=== PATIENT | female | born 1990 | race Caucasian/White ===

== ENCOUNTER → 2019-07-28 | Outpatient (CLI) | payer BC ==
[2019-07-28 11:20] LABS: HEMATOCRIT 40 % (35-52); HEMOGLOBIN 13.4 G/DL (11.5-16.0); MEAN CORPUSCULAR HEMOGLOBIN 28 PG (25-34); MEAN CORPUSCULAR HGB CONC 33 G/DL (32-36); MEAN CORPUSCULAR VOLUME 85 FL (80-99); WHITE BLOOD COUNT 12.7 10^3/uL (4.3-11.0)
[2019-07-28 11:21] LABS: BASOPHILS % (AUTO) 0 % (0-10); EOSINOPHILS % (AUTO) 1 % (0-10); LYMPHOCYTES # (AUTO) 2.3 X 10^3 (1.0-4.0); LYMPHOCYTES % (AUTO) 18 % (12-44); MONOCYTES # (AUTO) 0.6 X 10^3 (0.0-1.0); MONOCYTES % (AUTO) 5 % (0-12); NEUTROPHILS # (AUTO) 9.6 X 10^3 (1.8-7.8); NEUTROPHILS % (AUTO) 76 % (42-75); PLATELET COUNT 303 10^3/uL (130-400); RED CELL DISTRIBUTION WIDTH 12.7 % (10.0-14.5)
[2019-07-28 11:22] LABS: EOSINOPHILS # (AUTO) 0.1 10^3/uL (0.0-0.3)
== END ==
LOC: LAB FS 09:28
PROVIDERS: ATTEND Family Medicine
DX: Z34.80 Encounter for supervision of other normal pregnancy, unspecified trimester (principal); Z3A.00 Weeks of gestation of pregnancy not specified
CPT/HCPCS: 36415; 85025; 86703; 86762; 86780; 86850; 86900; 86901; 87088; 87340

== ENCOUNTER → 2019-08-29 | Outpatient (CLI) | payer OTHER | LOC: RAD FS 09:51 | PROVIDERS: ATTEND Family Medicine | DX: Z34.80 Encounter for supervision of other normal pregnancy, unspecified trimester (principal); Z3A.00 Weeks of gestation of pregnancy not specified | CPT/HCPCS: 36415; 82105; 82677; 84702; 86336 ==

== ENCOUNTER → 2019-08-29 | Outpatient (CLI) | payer OTHER | LOC: LAB FS 16:41 | PROVIDERS: ATTEND Family Medicine | DX: Z34.80 Encounter for supervision of other normal pregnancy, unspecified trimester (principal) | CPT/HCPCS: 36415; 87491; 87591 ==

== ENCOUNTER 2020-02-03 06:15 | Inpatient (IN) | payer OTHER ==
[2020-02-03] VITALS (58 sets, daily range): BP systolic 93–144; BP diastolic 53–82
[~2020-02-03] VITALS: Ht 157.5 cm; Wt 84.0 kg
--- NOTE | 2020-02-03 06:15 | NUR ---
DEE HOWELL presented to unit via ambulation from home/ED, accompanied by & Kristofer Bess, astro technician, for . DEE HOWELL weighed, gowned, voided, and to bed. EFHM and TOCO applied, VS taken. DEE HOWELL oriented to bed controls, call light, TV, heat, and A/C controls.
--- OUTSIDE RECORDS SUMMARY | 2020-02-03 06:19 | XMS REPORT | Continuity of Care Document ---
Author Organization Unknown Address Unknown Phone Unavailable Allergies There is no data. Medications There is no data. Problems Date Dx Coded Attending Type Code Diagnosis Diagnosed By 07/31/2019 Ot Z34.80 ENC OUNTER FOR SUPRVSN OF NORMAL PREGNANC 07/31/2019 Ot Z3A.00 WEE KS OF GESTATION OF NOT SPEC 08/29/2019 Ot Z34.80 ENC OUNTER FOR SUPRVSN OF NORMAL PREGNANC 08/29/2019 Ot Z3A.00 WEE KS OF GESTATION OF NOT SPEC 09/01/2019 FELIX VILLALOBOS MD Ot Z34.80 ENCOUNTER FOR SUPRVSN OF NORMAL PREGNANC 09/02/2019 FELIX VILLALOBOS MD Ot Z34.80 ENCOUNTER FOR SUPRVSN OF NORMAL PREGNANC 09/02/2019 FELIX VILLALOBOS MD Ot Z3A.00 WEEKS OF GESTATION OF NOT SPEC 09/09/2019 Ot Z34.80 ENC OUNTER FOR SUPRVSN OF NORMAL PREGNANC 09/09/2019 Ot Z3A.00 WEGm KS OF GESTATION OF NOT SPEC 09/13/2019 FELIX VILLALOBOS MD Ot Z34.80 ENCOUNTER FOR SUPRVSN OF NORMAL PREGNANC Procedures There is no data. Results Test Result Range HCG, QUANTITATIVE - 06/17/19 17:19 [place], [place] [address] mIU/mL NRG HCG, QUANTITATIVE - 06/19/19 16:46 [place] [address] mIU/mL NRG Complete blood count (CBC) with automate d white blood cell (WBC) differential - 07/28/19 10:04 Blood leukocytes automated count (number/volume) 12.7 10*3/uL 4.3-11.0 Blood erythrocytes automated count (number/volume) 4.74 10*6/uL 4.35-5.85 Venous blood hemoglobin measurement (mass/volume) 13.4 g/dL 11.5-16.0 Blood hematocrit (volume fraction) 40 % 35-52 Automated erythrocyte mean corpuscular volume 85 [ foz_us] 80-99 Automated erythrocyte mean corpuscular h emoglobin (mass per erythrocyte) 28 pg 25-34 Automated erythrocyte mean corpuscular h emoglobin concentration measurement (mass/volume) 33 g/dL 32-36 Automated erythrocyte distribution width ratio 12. 7 % 10.0- 14.5 Automated blood platelet count (count/volume) 303 10*3/uL 130-400 Automated blood platelet mean volume measurement 9.0 [foz_us] 7.4-10.4 Automated blood neutrophils/100 leukocytes 76 % 42-75 Automated blood lymphocytes/100 leukocytes 18 % 12-44 Blood monocytes/100 leukocytes 5 % 0-12 Automated blood eosinophils/100 leukocytes 1 % 0-10 Automated blood basophils/100 leukocytes 0 % 0-10 Blood neutrophils automated count (number/volume) 9.6 10*3 1.8-7.8 Blood lymphocytes automated count (number/volume) 2.3 10*3 1.0-4.0 Blood monocytes automated count (number/volume) 0. 6 10*3 0.0-1.0 Automated eosinophil count 0.1 10*3/uL 0 .0-0.3 Automated blood basophil count (count/volume) 0.0 10*3/uL 0.0-0.1 Blood type T Indirect antibody screen [place] - 07/28/19 10:04 ABO+Rh group OP NRG Blood group antibody screen NEGATIVE NR G Body fluid hepatitis B virus surface ant igen detection - 07/28/19 10:04 Confirmatory quantitative serum or plasm a hepatitis B virus surface antigen measurement Non-Reactive Non-Reactive Serum reagin antibody assay (units/volum e) by RPR - 07/28/19 10:04 Serum reagin antibody assay (units/volume) by RPR Non-Reactive Non-Reactive Human immunodeficiency virus (HIV) type 1 and 2 antibody detection - 07/28/19 10:04 Serum HIV 1+2 antibody detection by immunoblot Non-Reactive Non-Reactive RUBELLA ANTIBODY IGG - 07/28/19 10:04 Interpretation of serum rubella virus IgG antibody ck t Positive Negative RUBELLA IGG AB 2.08 % 0.00-0.89 Bacterial urine culture - 07/28/19 11:40 Bacterial urine culture [id number] NRG COLONY COUNT 10,000/ML - 100,000/ML NRG FTX;REPORTABLE YEAST REPORTED BY P 07/30 10:51 NRG FREE TEXT ENTRY 2 RML FINAL REPORT OF 07/29 WAS NO GROWTH NRG Encounters ACCT No. Visit Date/Time Discharge Status Pt. Type Provider Facility Loc./Unit Complaint [id number] 06/17/2019 16:45:00 06/17/2019 23:59: 59 CLS Outpatient FELIX VILLALOBOS [facility] [id number] 06/19/2019 16:45:00 Document Registration [id number] 06/17/2019 16:45:00 Document Registration [id number] 08/29/2019 16:41:00 020 23:59:59 CLS Outpatient FELIX VILLALOBOS MD [facility] LAB FS Z34.80 [id number] 08/29/2019 09:51:00 020 23:59:59 CLS Outpatient FELIX VILLALOBOS MD [facility] RAD FS Z34.80 [id number] 02/03/2020 06:30:00 P EN Preadmit TANYA RYAN DO [id number] 07/28/2019 11:22:00 Document Registration
[2020-02-03] MEDS ORDERED: D5 LR IV SOLUTION 1,000 ML IV SCH (06:31)
[2020-02-03] MEDS ORDERED: OXYTOCIN PRE-MIX DRIP 500 ML IV SCH ×3 (06:31→13:15)
[2020-02-03] MEDS ORDERED: D5 LR IV SOLUTION 1,000 ML IV ONE (06:47)
[2020-02-03] MEDS ORDERED: LACTATED RINGERS 1,000 ML IV ONE ×3 (06:49→08:40)
[2020-02-03 06:52] LABS: BASOPHILS % (AUTO) 0 % (0-10); EOSINOPHILS # (AUTO) 0.1 10^3/uL (0.0-0.3); EOSINOPHILS % (AUTO) 1 % (0-10); HEMATOCRIT 38 % (35-52); HEMOGLOBIN 12.9 G/DL (11.5-16.0); LYMPHOCYTES # (AUTO) 2.6 X 10^3 (1.0-4.0); LYMPHOCYTES % (AUTO) 18 % (12-44); MEAN CORPUSCULAR HEMOGLOBIN 28 PG (25-34); MEAN CORPUSCULAR HGB CONC 34 G/DL (32-36); MEAN CORPUSCULAR VOLUME 83 FL (80-99); MEAN PLATELET VOLUME 10.4 FL (7.4-10.4); MONOCYTES % (AUTO) 7 % (0-12); NEUTROPHILS % (AUTO) 75 % (42-75); PLATELET COUNT 326 10^3/uL (130-400); RED CELL DISTRIBUTION WIDTH 13.2 % (10.0-14.5); WHITE BLOOD COUNT 14.8 10^3/uL (4.3-11.0)
[2020-02-03] MEDS ORDERED: fentaNYL 2 mcg/ml BUPIVA 0.125 100 ML ONE (07:22)
--- NOTE | 2020-02-03 07:22 | NUR ---
Anesthesia notified of need for labor epidural
[2020-02-03 07:40] LABS: NEUTROPHILS % (MANUAL) 79 %
[2020-02-03 07:41] LABS: BAND NEUTROPHILS 0 %; BASOPHILS % (MANUAL) 0 %; EOSINOPHILS % (MANUAL) 2 %; LYMPHOCYTES % (MANUAL) 16 %; MONOCYTES % (MANUAL) 3 %; RBC MORPH NORMAL
[2020-02-03] MEDS ORDERED: fentaNYL INJECTION 100 MCG/2 ML AMP ONE (07:54)
[2020-02-03] MEDS ORDERED: ONDANSETRON 4 MG/2 ML (SDV) Z0FRAN IV PRN (08:45)
[2020-02-03] MEDS ORDERED: NALOXONE 0.4 MG/ML 1 ML (NARCAN) VIAL IV PRN (08:45)
[2020-02-03] MEDS ORDERED: EPIDURAL (fentaNYL 2 MCG/ML BUPIVA 0.125%)100 ML BAG EPI PRN (08:45)
[2020-02-03] MEDS ORDERED: BUPIVACAINE 0.25% 30 ML (SENSORCAINE) VIAL ONE (08:47)
--- NOTE | 2020-02-03 11:50 | History & Physical-OB ---
OB - Chief Complaint & HPI Date/Time Date of Admission: Date of Admission: Feb 03, 2020 at 6:15 am Date seen by a Provider: Feb 03, 2020 Time Seen by a Provider: 08:10 Chief Complaint/History OB-Reason for Admission/Chief: Induction of Labor Hx : 3 Hx Para: 2 Expected Date of Delivery: Feb 06, 2020 Gestational Age in Weeks: 39 Gestational Age in Days: 4 Admission Nurse Assessment Rev: Yes Allergies and Home Medications Allergies Coded Allergies: oxycodone (Verified Allergy, Intermediate, Rash, 02/03/20) Patient Home Medication List Home Medication List Reviewed: Yes OB - History Hx of Present Care: Yes Ultrasounds: Normal mid trimester US Obstetrical Complications: None Medical Complications: None Patient Past Medical History n/a OB - Admission Exam Physical Exam Vitals: Vital Signs 02/03/20 02/03/20 02/03/20 08:24 09:45 10:45 Temp 37.0 Pulse 75 Resp 18 B/P (MAP) 105/55 (72) Pulse Ox 99 O2 Delivery Room Air HEENT: NCAT Heart: Rhythm Normal Lungs: Clear Abdomen: Gravid Extremities: Normal Reflexes: Normal Cervical Dilatation: 2cm Effacement: 75% Station: -1 Membranes: Intact Heart Rate: 130's Accelerations: Accelerations Present Decelerations: No Decelerations Short Term Variability: Present Jailkeeper Variability: Average (6-25) Contractions on Admission: 6-10 Minutes Apart Intensity: Mild Labs Laboratory Tests Test 02/03/20 06:25 Range/Units White Blood Count 14.8 H 4.3-11.0 10^3/uL Red Blood Count 4.58 4.35-5.85 10^6/uL Hemoglobin 12.9 11.5-16.0 G/DL Hematocrit 38 35-52 % Mean Corpuscular Volume 83 80-99 FL Mean Corpuscular Hemoglobin 28 25-34 PG Mean Corpuscular Hemoglobin Concent 34 32-36 G/DL Red Cell Distribution Width 13.2 10.0-14.5 % Platelet Count 326 130-400 10^3/uL Mean Platelet Volume 10.4 7.4-10.4 FL Neutrophils (%) (Auto) 75 42-75 % Lymphocytes (%) (Auto) 18 12-44 % Monocytes (%) (Auto) 7 0-12 % Eosinophils (%) (Auto) 1 0-10 % Basophils (%) (Auto) 0 0-10 % Neutrophils # (Auto) 11.0 H 1.8-7.8 X 10^3 Lymphocytes # (Auto) 2.6 1.0-4.0 X 10^3 Monocytes # (Auto) 1.0 0.0-1.0 X 10^3 Eosinophils # (Auto) 0.1 0.0-0.3 10^3/uL Basophils # (Auto) 0.0 0.0-0.1 10^3/uL Neutrophils % (Manual) 79 % Lymphocytes % (Manual) 16 % Monocytes % (Manual) 3 % Eosinophils % (Manual) 2 % Basophils % (Manual) 0 % Band Neutrophils 0 % Blood Morphology Comment NORMAL OB - Assessment/Plan/Diagnosis Assessment Assessment: induction of labor Admission Dx 30 yo @ 39 weeks TOLAC GBS neg Admission Status: Inpatient Order (span 2 midnights) Reason for Inpatient Admission: Induction of labor at term Plan Plan: Induction Induction Method: TANYA CORONADO DO Feb 03, 2020 11:50 am
[2020-02-03] MEDS ORDERED: LIDOCAINE/EPI 2% 1:200,00 (XYLOCAINE) 10 ML VIAL ONE ×2 (12:43→12:44)
[2020-02-03] MEDS ORDERED: DIBUCAINE (NUPERCAINAL) 1% OINT 30 GM TOP PRN (13:15)
[2020-02-03] MEDS ORDERED: MEASLES,MUMPS,RUBELLA 1 EA INJ SQ ONE (13:15)
[2020-02-03] MEDS ORDERED: TETANUS,DIPTH,PERTUSS P/F (BOOSTRIX) 0.5 ML VIAL IM ONE (13:15)
[2020-02-03] MEDS ORDERED: WITCH HAZEL(TUCKS) 40 EA JAR TOP PRN (13:15)
[2020-02-03] MEDS ORDERED: HYDROcodone/APAP 5 MG/325 MG (LORTAB) TAB PO PRN (13:15)
[2020-02-03] MEDS ORDERED: BENZOCAINE/MENTHOL (DERMOPLAST) 60 ML CAN TP PRN (13:15)
--- NOTE | 2020-02-03 13:21 | OB Labor & Delivery Record ---
L&D History Date of Service Date of Service: Feb 03, 2020 History Expected Date of Delivery: Feb 06, 2020 Gestational Age in Weeks: 39 Hx : 3 Hx Para: 2 Complications Events: Routine care Operative Indications (Cesarea: N/A-Vaginal Delivery Intrapartal Events: None L&D Stage1 Stage One Onset of Labor - Date: Feb 03, 2020 Monitors and Tracing Monitor Mode: External Heart Rate: 130 Monitor Accelerations: Uniform Monitor Decelerations: None Station: -1 Director Process Variability: Average (6-10) Short Term Variability: Present Presentation: Vertex Vital Signs VS - Last 72 Hours, by Label 02/03/20 02/03/20 02/03/20 02/03/20 07:04 07:15 08:05 08:15 Temp 36.6 36.1 Pulse 89 80 82 116 Resp 18 18 18 18 B/P (MAP) 118/74 (89) 135/82 (99) 134/77 (96) Pulse Ox 99 100 100 O2 Delivery Room Air Room Air Room Air 02/03/20 02/03/20 02/03/20 02/03/20 08:18 08:21 08:24 08:27 Temp 37.0 Pulse 89 94 88 101 Resp 18 18 18 18 B/P (MAP) 124/74 (91) 125/74 (91) 120/74 (89) 122/76 (91) Pulse Ox 100 100 99 98 O2 Delivery Room Air Room Air Room Air Room Air 02/03/20 02/03/20 02/03/20 02/03/20 08:30 08:33 08:36 08:39 Pulse 76 90 82 85 Resp 18 18 18 18 B/P (MAP) 127/71 (89) 120/69 (86) 121/73 (89) 122/71 (88) Pulse Ox 98 99 99 97 O2 Delivery Room Air Room Air Room Air Room Air 02/03/20 02/03/20 02/03/20 02/03/20 08:42 08:45 08:47 08:51 Pulse 94 86 78 82 Resp 18 18 18 18 B/P (MAP) 126/75 (92) 120/78 (92) 120/75 (90) 119/73 (88) Pulse Ox 98 98 97 97 O2 Delivery Room Air Room Air Room Air Room Air 02/03/20 02/03/20 02/03/20 02/03/20 08:54 08:57 09:00 09:03 Pulse 78 79 71 74 Resp 18 18 18 18 B/P (MAP) 121/72 (88) 114/71 (85) 117/72 (87) 121/76 (91) Pulse Ox 100 99 99 98 O2 Delivery Room Air Room Air Room Air Room Air 02/03/20 02/03/20 02/03/20 02/03/20 09:10 09:15 09:20 09:25 Pulse 76 76 71 70 Resp 18 18 18 18 B/P (MAP) 113/70 (84) 113/67 (82) 116/65 (82) 112/60 (77) Pulse Ox 98 97 96 99 O2 Delivery Room Air Room Air Room Air Room Air 02/03/20 02/03/20 02/03/20 02/03/20 09:30 09:35 09:40 09:45 Pulse 76 73 67 69 Resp 18 18 18 18 B/P (MAP) 118/66 (83) 93/53 (66) 111/66 (81) 113/64 (80) Pulse Ox 98 100 99 99 O2 Delivery Room Air Room Air Room Air Room Air 02/03/20 02/03/20 02/03/20 02/03/20 10:00 10:15 10:30 10:45 Pulse 71 74 71 75 Resp 18 18 18 18 B/P (MAP) 103/54 (70) 102/54 (70) 106/55 (72) 105/55 (72) O2 Delivery Room Air Room Air Room Air Room Air Rupture of Membranes Spontaneous Ruture of Membrane: No Amniotic Membrane Rupture Time: 824 Amniotic Membrane Fluid Desc.: Clear Vaginal Bleeding Description: Normal Show Induction/Anesthesia Epidural Cath Placement - Time: 816 Progress/Notes Patient admitted for induction. Epidural done, and AROM performed at 0810. Pitocin augmentation started and she progressed to complete and + 2 station. L&D Stage2 Stage Two Stage II Date: Feb 03, 2020 Monitors and Tracing Monitor Mode: External Heart Rate: 130 Monitor Accelerations: Uniform Monitor Decelerations: None Director Process Variability: Average (6-10) Short Term Variability: Present Position: Right Occiput Anterior Presentation: Vertex Cord Descript/Complications Cord Vessel Description: 3 Vessels Complications nuchal cord reduced x 1 Delivery Type Infant Delivery Method: Spontaneous Vaginal Anterior Shoulder: Right Episiotomy/Perineal Laceration Laceraction(s)/Extensions: Yes Degree (describe repair) right labial laceration repaired using 3-0 rapide vicryl in interupted fashion Condition of Infant Delivery 1 minute Comment: 8 5 minute Comment: 8 Notes Live female , weight pending- infant to mother's chest Condition of Infant Condition of : Living Exam: No Observed Abnormalities Resuscitation Resuscitation: N/A - Spontaneous Resp L&D Stage3 Stage Three Stage III Date: Feb 03, 2020 Pictocin Pitocin Administration mu/min: 6 Pitocin ml/hr: 6 Pitocin Administration Comment: Pitocin 30 mu wide open after delivery of placenta Placenta Delivery Placenta Delivery: Spontaneous Delivery Summary Summary Estimated blood loss (mL): 350 Attending at delivery: Tanya Ryan DO Condition of Delivery Examined: Cervix Examined, Uterus Explored Post Hemorrhage: No Condition of Mother stable Condition of Infant (s) stable TANYA RYAN DO Feb 03, 2020 1:21 pm
[2020-02-03] MEDS ORDERED: CATHETER FLUSH 10 ML SYR IV SCH ×2 (14:00)
--- NOTE | 2020-02-03 14:30 | NUR ---
Report to Ladan Ramirez RN
--- NOTE | 2020-02-03 14:35 | Discharge Inst-Women's Service ---
Discharge Inst-Women's Serv Depart Medication/Instructions New, Converted or Re-Newed RX: RX on Chart Final Diagnosis PPD 1 NVD Problems Reviewed?: Yes Consults/Follow Up Additional Follow Up: Yes Orders/Referrals Dr. Ryan in 6 weeks Activity Activity: Activity as Tolerated Driving Instructions: No Driving for 1 Week NO SMOKING: NO SMOKING Nothing Inside Vagina: No Douching, No [place], No Tampons Diet Discharge Diet: No Restrictions Symptoms to Report to : Bleeding Excessive, Pain Increased, Fever Over 101 Degrees F, Vaginal Bleeding Increase, Questions/Concerns For Any Problems or Questions: Contact Your Physician TANYA RYAN DO Feb 03, 2020 2:35 pm
[2020-02-03] MEDS ORDERED: IBUP-844 PO (14:43)
[2020-02-03] MEDS ORDERED: DCS100C PO (14:43)
[2020-02-03] MEDS ORDERED: HYDR-83 PO (14:43)
[2020-02-03] MEDS ORDERED: BENZ78AE2 TP (14:43)
[2020-02-03] MEDS: IBUPROFEN 600 MG (MOTRIN) TAB PO SCH (18:02)
--- NOTE | 2020-02-03 18:14 | NUR ---
REFER TO LABOR FLOW SHEET.
[2020-02-03] MEDS: DOCUSATE SODIUM 100 MG (COLACE) CAP PO SCH (21:46)
[2020-02-04 01:02] VITALS: BP 129/81
[2020-02-04] MEDS: IBUPROFEN 600 MG (MOTRIN) TAB PO SCH ×3 (01:02→14:08)
[2020-02-04 05:25] VITALS: BP 119/76
[2020-02-04 05:25] LABS: BASOPHILS % (AUTO) 0 % (0-10); EOSINOPHILS # (AUTO) 0.2 10^3/uL (0.0-0.3); EOSINOPHILS % (AUTO) 1 % (0-10); HEMATOCRIT 35 % (35-52); HEMOGLOBIN 11.7 G/DL (11.5-16.0); LYMPHOCYTES # (AUTO) 3.5 X 10^3 (1.0-4.0); LYMPHOCYTES % (AUTO) 19 % (12-44); MEAN CORPUSCULAR HEMOGLOBIN 28 PG (25-34); MEAN CORPUSCULAR HGB CONC 33 G/DL (32-36); MEAN CORPUSCULAR VOLUME 84 FL (80-99); MEAN PLATELET VOLUME 10.1 FL (7.4-10.4); MONOCYTES # (AUTO) 1.3 X 10^3 (0.0-1.0); MONOCYTES % (AUTO) 7 % (0-12); NEUTROPHILS # (AUTO) 13.4 X 10^3 (1.8-7.8); NEUTROPHILS % (AUTO) 73 % (42-75); PLATELET COUNT 285 10^3/uL (130-400); WHITE BLOOD COUNT 18.4 10^3/uL (4.3-11.0)
[2020-02-04] MEDS ORDERED: PRENATAL VITAMIN 1 EA TAB PO SCH (07:00)
[2020-02-04 07:45] VITALS: BP 120/72
[2020-02-04] MEDS: DOCUSATE SODIUM 100 MG (COLACE) CAP PO SCH (07:57)
[2020-02-04] MEDS ORDERED: FERROUS SULF 325 MG (IRON) TAB PO SCH (08:00)
--- NOTE | 2020-02-04 08:09 | Anesthesia-Regional Post-Op ---
Regional Patient Condition Mental Status: Alert, Oriented x3 Circulation: Same as Pre-Op Headache: Absent Sensation: Full Recovery Motor Block: Absent Post Op Complications Complications None Follow Up Care/Instructions Patient Instructions None needed. Anesthesia/Patient Condition Patient is doing well, no complaints, stable vital signs, no apparent adverse anesthesia problems. No complications reported per nursing. ANDRZEJ FOLEY CRNA Feb 04, 2020 08:09
--- NOTE | 2020-02-04 08:15 | Postpartum Progress Note ---
Note Note Day # 1 Subjective: Patient is without complaints. Ambulating, voiding. Tolerating a regular diet without nausea or vomiting. Normal lochia. Pain is well controlled with oral pain medications. Objective: Physical Exam: General - Alert and oriented, no apparent distress Abdomen - Soft, appropriately tender to palpation, non-distended, fundus firm at umbilicus Extremities - no edema, negative Mireya's bilaterally Assessment: PPD 1 NVD Plan: Routine care. Encourage breast feeding. Encourage ambulation. Ferrous sulfate supplementation. Plan for discharge today Vitals - Labs Vital Signs - I&O Vital Signs Date Time Temp Pulse Resp B/P (MAP) Pulse Ox O2 Delivery O2 Flow Rate FiO2 02/04/20 05:25 36.6 82 18 119/76 (90) 98 Room Air 02/04/20 01:02 36.5 78 18 129/81 (97) 98 Room Air 02/03/20 21:46 36.7 78 18 121/76 (91) 97 Room Air 02/03/20 17:16 85 18 118/69 (85) Room Air 02/03/20 17:01 98 18 127/68 (87) Room Air 02/03/20 16:46 74 18 129/73 (91) Room Air 02/03/20 16:31 75 18 127/69 (88) Room Air 02/03/20 16:16 72 18 118/73 (88) Room Air 02/03/20 16:01 85 18 121/72 (88) Room Air 02/03/20 15:46 72 18 127/76 (93) Room Air 02/03/20 15:31 70 18 116/54 (74) Room Air 02/03/20 15:27 37.1 02/03/20 15:16 77 18 117/59 (78) Room Air 02/03/20 15:01 81 18 117/62 (80) Room Air 02/03/20 14:46 69 18 128/67 (87) Room Air 02/03/20 14:31 81 18 122/57 (78) Room Air 02/03/20 14:16 65 18 123/62 (82) Room Air 02/03/20 14:01 64 18 128/71 (90) Room Air 02/03/20 13:46 78 18 127/65 (85) Room Air 7/7/20 13:31 36.6 75 18 130/66 (87) Room Air 02/03/20 13:16 78 18 125/60 (81) Room Air 02/03/20 13:01 82 18 117/59 (78) Room Air 02/03/20 12:45 97 18 130/79 (96) Room Air 02/03/20 12:30 80 18 129/74 (92) Room Air 02/03/20 12:20 86 18 120/76 (91) Room Air 02/03/20 12:00 92 18 125/76 (92) Room Air 02/03/20 11:45 76 18 127/76 (93) Room Air 02/03/20 11:15 71 18 113/58 (76) Room Air 02/03/20 11:00 75 18 111/56 (74) Room Air 02/03/20 10:45 75 18 105/55 (72) Room Air 02/03/20 10:30 71 18 106/55 (72) Room Air 02/03/20 10:15 74 18 102/54 (70) Room Air 02/03/20 10:00 71 18 103/54 (70) Room Air 02/03/20 09:45 69 18 113/64 (80) 99 Room Air 02/03/20 09:40 67 18 111/66 (81) 99 Room Air 02/03/20 09:35 73 18 93/53 (66) 100 Room Air 02/03/20 09:30 76 18 118/66 (83) 98 Room Air 02/03/20 09:25 70 18 112/60 (77) 99 Room Air 02/03/20 09:20 71 18 116/65 (82) 96 Room Air 02/03/20 09:15 76 18 113/67 (82) 97 Room Air 02/03/20 09:10 76 18 113/70 (84) 98 Room Air 02/03/20 09:03 74 18 121/76 (91) 98 Room Air 02/03/20 09:00 71 18 117/72 (87) 99 Room Air 02/03/20 08:57 79 18 114/71 (85) 99 Room Air 02/03/20 08:54 78 18 121/72 (88) 100 Room Air 02/03/20 08:51 82 18 119/73 (88) 97 Room Air 02/03/20 08:47 78 18 120/75 (90) 97 Room Air 02/03/20 08:45 86 18 120/78 (92) 98 Room Air 02/03/20 08:42 94 18 126/75 (92) 98 Room Air 02/03/20 08:39 85 18 122/71 (88) 97 Room Air 02/03/20 08:36 82 18 121/73 (89) 99 Room Air 02/03/20 08:33 90 18 120/69 (86) 99 Room Air 02/03/20 08:30 76 18 127/71 (89) 98 Room Air 02/03/20 08:27 101 18 122/76 (91) 98 Room Air 02/03/20 08:24 37.0 88 18 120/74 (89) 99 Room Air 02/03/20 08:21 94 18 125/74 (91) 100 Room Air 02/03/20 08:18 89 18 124/74 (91) 100 Room Air 02/03/20 08:15 116 18 134/77 (96) 100 Room Air I & O 02/04/20 07:00 Intake Total 1000 ml Balance 1000 ml Labs Laboratory Tests 02/04/20 05:13: White Blood Count 18.4H, Red Blood Count 4.19L, Hemoglobin 11.7, Hematocrit 35, Mean Corpuscular Volume 84, Mean Corpuscular Hemoglobin 28, Mean Corpuscular Hemoglobin Concent 33, Red Cell Distribution Width 13.0, Platelet Count 285, Mean Platelet Volume 10.1, Neutrophils (%) (Auto) 73, Lymphocytes (%) (Auto) 19, Monocytes (%) (Auto) 7, Eosinophils (%) (Auto) 1, Basophils (%) (Auto) 0, Neutrophils # (Auto) 13.4H, Lymphocytes # (Auto) 3.5, Monocytes # (Auto) 1.3H, Eosinophils # (Auto) 0.2, Basophils # (Auto) 0.0 TANYA RYAN DO Feb 04, 2020 08:15
--- NOTE | 2020-02-04 10:40 | NUR ---
Report received from Cullen Luz RN
--- NOTE | 2020-02-04 11:20 | NUR ---
Dime size purple bruise at epidural site. Addendum: 02/04/20 at 1121 by IRVING KELLER RN Amended: Links added.
[2020-02-04 12:13] VITALS: BP 116/73
--- NOTE | 2020-02-04 14:10 | NUR ---
Discharge instructions explained, signed and copy to patient. prescriptions given and medications discussed with pt.
[2020-02-04 15:30] VITALS: BP 116/73
--- NOTE | 2020-02-04 15:30 | NUR ---
Discharged to home. Ambulates self downstairs to private vehicle with belongings in hand. Accompanied by s.o. and staff member.
== END 2020-02-04 15:55 | disposition home or self-care (01) | DRG 807 ==
LOC: LDRP 06:15
PROVIDERS: ADMIT Obstetrics & Gynecology; ATTEND Obstetrics & Gynecology
PROC: 10E0XZZ Delivery of Products of Conception, External Approach (ICD-10-PCS; principal; 2020-02-03)
PROC: 0HQ9XZZ Repair Perineum Skin, External Approach (ICD-10-PCS; 2020-02-03)
PROC: 10907ZC Drainage of Amniotic Fluid, Therapeutic from Products of Conception, Via Natural or Artificial Opening (ICD-10-PCS; 2020-02-03)
DX: O70.0 First degree perineal laceration during delivery (principal); Z37.0 Single live birth; O34.211 Maternal care for low transverse scar from previous cesarean delivery; O69.81X0 Labor and delivery complicated by cord around neck, without compression, not applicable or unspecified; Z3A.39 39 weeks gestation of pregnancy
CPT/HCPCS: 36415; 85007; 85025; 85027; 86850; 86900; 86901